=== PATIENT | female | born 1995 | race Caucasian/White ===

== ENCOUNTER 2017-05-30 08:31 | Inpatient (IN) | payer BC ==
[~2017-05-30] VITALS: Ht 162.6 cm; Wt 88.4 kg
[2017-05-30] MEDS ORDERED: KETOROLAC TROMETHAMINE 30 MG/ML VIAL IV STA (08:48)
[2017-05-30] MEDS ORDERED: SODIUM CHLORIDE 0.9% 1000ML 1,000 ML IV STA (08:48)
[2017-05-30] MEDS ORDERED: PRED20TA PO (09:10)
[2017-05-30] MEDS ORDERED: BCPILLS PO (09:10)
[2017-05-30] MEDS ORDERED: AMX875 PO (09:10)
[2017-05-30 09:15] LABS: BASO % 0.3 %; BASO ABS # 0.03 K/uL (0-0.2); HEMATOCRIT 43.2 % (37-47); HEMOGLOBIN 14.6 g/dL (12.0-16.0); IG# 0.02 K/uL (0.00-0.02); LYMPH % 19.8 %; LYMPH ABS # 1.88 K/uL (1.2-3.4); MEAN CELL VOLUME 91.7 fL (80-100); MEAN CORPUSCULAR HGB CONC 33.8 g/dl (32-36); MEAN PLATELET VOLUME 10.2 fL (7.4-10.4); MONO % 5.8 %; MONO ABS # 0.55 K/uL (0.11-0.59); NEUT % 73.9 %; PLATELET COUNT 232 K/uL (130-400); RED CELL DISTRIBUTION WIDTH CV 12.6 % (11.5-14.5); RED CELL DISTRIBUTION WIDTH SD 42.4 fL (36.4-46.3); WHITE BLOOD COUNT 9.48 K/uL (4.8-10.8)
--- NOTE | 2017-05-30 09:21 | EMERGENCY ROOM VISIT NOTE ---
History First contact with patient: 08:41 Chief Complaint: OTHER COMPLAINT Stated Complaint: THROAT IS TOUCHING, LIGHT HEADED, SWEATING, DIZZY History of Present Illness The patient is a 22 year old female who presents to the Emergency Room via private vehicle with complaints of "throat is touching, lightheaded, sweating, dizzy". The patient states that over the past weekend she developed a sore throat. She states that she was drinking. She states that she then felt ill, and states that her tonsils seem to be enlarged therefore she was seen at [facility] and prescribed amoxicillin and prednisone. She took 2 amoxicillin 3 prednisone tablets yesterday. She woke this morning and took more amoxicillin and prednisone. She states that she was going to go to her scheduled lab class however became hot, dizzy and sweaty and was concerned she may pass out therefore came here. She notes trouble breathing through her throat secondary to the amount of swelling at the tonsils. She rates her overall pain as a 6/ 10. She denies chance of . Review of Systems A complete 10-point Review of Systems was discussed with the patient, with pertinent positives and negatives listed in the History of Present Illness. All remaining Review of Systems questions can be considered negative unless otherwise specified. Past Medical/Surgical History Medical Problems: (1) Infectious mononucleosis No pertinent. Family History No pertinent. Social History Smoking Status: Never Smoker Patient is a [employer] student and lives locally. Current/Historical Medications Scheduled Amoxicillin (Amoxicillin), 875 MG PO BID Control Pills ( Control Pills), 1 TAB PO DAILY Prednisone (Prednisone), 60 MG PO DAILY Physical Exam Vital Signs Date Time Temp Pulse Resp B/P (MAP) Pulse Ox O2 Delivery O2 Flow Rate FiO2 05/30/17 10:27 90 16 137/99 98 Room Air 05/30/17 08:34 36.8 117 18 150/86 95 Room Air Physical Exam VITAL SIGNS - Vital signs and nursing notes were reviewed. Stable GENERAL - 22-year-old female appearing her stated age who is in no acute distress. She is conversing without difficulty. No trismus. No tripod sign. Communicates well with provider and answers questions appropriately. SKIN - Without rashes. No meningeal or petechial rash. HEAD - NC/AT. EYES - PERRL with EOMI bilaterally. Sclera anicteric. EARS - No deformities of external structures noted on gross examination bilaterally. External auditory canals without discharge or otorrhea. Tympanic membranes pearly monroy without retraction or bulging. No fluid or purulent material visualized behind the TM. Handle of malleus, umbo, cone of light, pars tensa/flaccid all easily visualized. NOSE - Midline and without cyanosis. No epistaxis or purulent drainage noted. MOUTH/OROPHARYNX - Without perioral cyanosis. There is 4+ tonsillar hypertrophy bilaterally with uvular displacement. The airway is mildly patent. No unilaterality. No soft palate involvement. No evidence of abscess. NECK - Neck with FROM. Supple to palpation. Anterior bilateral lymphadenopathy noted. No nuchal rigidity. LUNGS - Chest wall symmetric without accessory muscle use, intercostals retractions, or central cyanosis. Normal vesicular breath sounds CTA B/L. No wheezes, rales, or rhonchi appreciated. CARDIAC - RRR with S1/S2. No murmur, rubs, or gallops appreciated. EXTREMITIES - No clubbing or peripheral cyanosis. No pretibial edema present. +5 /5 strength noted in UE/LE bilaterally. NEUROLOGIC - Cranial nerves II through XII grossly intact. Sensory intact to light touch throughout. PSYCH - A&O, and cooperates fully with examiner. Pt is very pleasant and interacts well with examiner. Medical Decision & Procedures Laboratory Results 05/30/17 09:05 Red Blood Count 4.71, Mean Corpuscular Volume 91.7, Mean Corpuscular Hemoglobin 31.0, Mean Corpuscular Hemoglobin Concent 33.8, Mean Platelet Volume 10.2, Neutrophils (%) (Auto) 73.9, Lymphocytes (%) (Auto) 19.8, Monocytes (%) (Auto) 5.8, Eosinophils (%) (Auto) 0.0, Basophils (%) (Auto) 0.3, Neutrophils # (Auto) 7.00, Lymphocytes # (Auto) 1.88, Monocytes # (Auto) 0.55, Eosinophils # (Auto) 0.00, Basophils # (Auto) 0.03 05/30/17 09:05 Test 05/30/17 09:05 White Blood Count 9.48 K/uL (4.8-10.8) Red Blood Count 4.71 M/uL (4.2-5.4) Hemoglobin 14.6 g/dL (12.0-16.0) Hematocrit 43.2 % (37-47) Mean Corpuscular Volume 91.7 fL (80-100) Mean Corpuscular Hemoglobin 31.0 pg (25-34) Mean Corpuscular Hemoglobin Concent 33.8 g/dl (32-36) Platelet Count 232 K/uL (130-400) Mean Platelet Volume 10.2 fL (7.4-10.4) Neutrophils (%) (Auto) 73.9 % Lymphocytes (%) (Auto) 19.8 % Monocytes (%) (Auto) 5.8 % Eosinophils (%) (Auto) 0.0 % Basophils (%) (Auto) 0.3 % Neutrophils # (Auto) 7.00 K/uL (1.4-6.5) Lymphocytes # (Auto) 1.88 K/uL (1.2-3.4) Monocytes # (Auto) 0.55 K/uL (0.11-0.59) Eosinophils # (Auto) 0.00 K/uL (0-0.5) Basophils # (Auto) 0.03 K/uL (0-0.2) RDW Standard Deviation 42.4 fL (36.4-46.3) RDW Coefficient of Variation 12.6 % (11.5-14.5) Immature Granulocyte % (Auto) 0.2 % Immature Granulocyte # (Auto) 0.02 K/uL (0.00-0.02) Prothrombin Time 10.1 SECONDS (9.0-12.0) Prothromb Time International Ratio 1.0 (0.9-1.1) Anion Gap 9.0 mmol/L (3-11) Est Creatinine Clear Calc Drug Dose 104.5 ml/min Estimated GFR () 103.9 Estimated GFR (Non- 89.6 BUN/Creatinine Ratio 13.0 (10-20) Calcium Level 9.3 mg/dl (8.5-10.1) Total Bilirubin 0.3 mg/dl (0.2-1) Aspartate Amino Transf (AST/SGOT) 9 U/L (15-37) Alanine Aminotransferase (ALT/SGPT) 26 U/L (12-78) Alkaline Phosphatase 70 U/L (45-117) Total Protein 8.3 gm/dl (6.4-8.2) Albumin 3.9 gm/dl (3.4-5.0) Globulin 4.4 gm/dl (2.5-4.0) Albumin/Globulin Ratio 0.9 (0.9-2) Monoscreen POS (NEG) Medications Administered Medications (Trade) Dose Ordered Sig/Vanessa Route Start Time Stop Time Status Last Admin Dose Admin Sodium Chloride 1,000 ml @ 999 mls/hr Q1H1M STAT IV 05/30/17 08:48 05/30/17 09:48 DC 05/30/17 09:11 999 MLS/HR Ketorolac Tromethamine (Toradol Inj) 30 mg NOW STAT IV 05/30/17 08:48 05/30/17 08:50 DC 05/30/17 09:13 30 MG Clindamycin Phosphate (Cleocin 600mg/ 54ml D5W) 600 mg ONE STAT IV 05/30/17 10:13 05/30/17 10:14 DC 05/30/17 10:54 600 MG Dexamethasone Sodium Phosphate 10 mg/Syringe 2.5 ml @ 1 mls/min NOW STAT IV 05/30/17 10:13 05/30/17 10:15 DC 05/30/17 10:55 1 MLS/MIN Sodium Chloride 1,000 ml @ 50 mls/hr Q20H IV 05/30/17 11:04 06/29/17 11:03 05/30/17 14:56 50 MLS/HR Medical Decision Patient was seen and evaluated as above. She presents to us today with difficulty breathing and near syncopal event with enlarged tonsils. Review was performed of nursing notes and vital signs. After obtaining a thorough history and physical examination the above work up was performed. CBC reveals no concerning leukocytosis or anemia. Coagulation panel normal. Patient's metabolic panel reveals no evidence of kidney or liver failure. LFTs are unremarkable. She is mono positive. Patient notes that she had a negative strep test at [email or web address] yesterday. She has been taking amoxicillin and prednisone without relief. She was given Decadron and Toradol here. She was also given fluids and clindamycin. The clindamycin was ordered in case there is an underlying bacterial infection. She was educated upon risk of C. difficile. I do believe that inpatient management is warranted for the severity of the size of the tonsils. The patient did have difficulty breathing earlier today with a near syncopal event shortness of breath do find that managing her here in the inpatient setting with steroids until the tonsillar hypertrophy improves is warranted. Patient was in agreement. Case was discussed with the attending physician, and subsequently the hospitalist. Please refer to for the documentation regarding her stay. In the evaluation and treatment of this patient the following differential diagnoses were entertained: Tonsillitis, mononucleosis, strep pharyngitis, airway compromise, among others. Impression Primary Impression: Infectious mononucleosis Additional Impression: Tonsillar hypertrophy Departure Information Dispostion Admitted as an inpatient Condition FAIR Referrals No Doctor, Assigned (PCP) Patient Instructions My [facility] Problem Qualifiers
[2017-05-30 09:35] LABS: ALBUMIN 3.9 gm/dl (3.4-5.0); CALCIUM 9.3 mg/dl (8.5-10.1); CREATININE 0.92 mg/dl (0.60-1.20)
[2017-05-30 09:38] LABS: TOTAL PROTEIN 8.3 gm/dl (6.4-8.2)
[2017-05-30] MEDS ORDERED: DEXAMETHASONE INJ 10 MG in SYRINGE 0 ML IV STA (10:13)
[2017-05-30] MEDS ORDERED: CLINDAMYCIN 600 MG/54 ML D5W IV STA (10:13)
[2017-05-30] MEDS ORDERED: ACETAMINOPHEN 325 MG TAB PO PRN (11:15)
--- NOTE | 2017-05-30 11:18 | History and Physical ---
History & Physical Date & Time of Service: May 30, 2017 at 11:08 Chief Complaint: Throat Is Touching, Light Headed, Sweating, Dizzy Primary Care Physician: No Doctor, Assigned History of Present Illness Source: patient 22 years old female with no significant past medical history. 4 days ago patient developed itchy throat and felt like she might be having sore throat. She did not pay much attention to it. Yesterday she had a slight fever and her throat swelling gets worse. She went to [facility] and was told that most likely she had a strep throat. She was given prednisone 60 mg and amoxicillin. Today patient started feeling shortness of breath when she woke up, she felt like her tonsils are touching her uvula. She had a class at the [employer] that she tried to attend. But she felt that she will pass out. So she came to the hospital for further evaluation. In the hospital she was found to have a normal white blood cell count and extremely enlarged tonsils suspicious for infectious mononucleosis. Her infectious mononucleosis test was positive. Giving her history of presyncope and shortness of breath and the extreme narrowing of pharyngeal airway she will be admitted under observation until her airway opens up Past Medical/Surgical History Medical Problems: (1) Infectious mononucleosis Social History Smoking Status: Never Smoker Allergies Coded Allergies: No Known Allergies (Unverified , 05/30/17) Home Medications Scheduled Amoxicillin (Amoxicillin), 875 MG PO BID Control Pills ( Control Pills), 1 TAB PO DAILY Prednisone (Prednisone), 60 MG PO DAILY Review of Systems Review of system Constitutional: Yesterday 1 episode of fever / no chills / no sweats / no weakness / no fatigue Eyes: no blurring of vision / no eye pain / no discharge / no redness ENT: no hearing loss / no epistaxis /has shortness of breath with swelling in her throat, patient feels that her tonsils are touching her uvula Respiratory: no cough / no wheezing / no SOB / no hemoptysis Cardiovascular: no Chest pain / no lower extremity edema / no palpitation Abdomen: no pain / no nausea / no vomiting / no constipation Musculoskeletal: no joint pain / no muscle pain / no joint swelling Genitourinary: no dysuria / no incontinence / no urinary retention Neurologic: no focal weakness / no numbness/tingling / no ataxia Psychiatric: no depression symptoms / no anxiety / no insomnia Endocrine: no excessive thirst / no excessive urination Hematologic: no abnormal bleeding / no bruising / no LN swelling Skin: No rash / no pallor Physical Exam Vital Signs Date Time Temp Pulse Resp B/P (MAP) Pulse Ox O2 Delivery O2 Flow Rate FiO2 05/30/17 10:27 90 16 137/99 98 Room Air 05/30/17 08:34 36.8 117 18 150/86 95 Room Air Physical examination General patient appears to be comfortable, not in acute distress HEENT: Atraumatic , normocephalic /no jaundice /no pallor /anicteric /no dry mucous membrane /normal external ear inspection patient pharynx appears to be Normal except for severely enlarged tonsils, her tonsils almost touching each other with a very small slit in between preserved for breathing. Neck: Supple /no swelling /central trach Heart: S1/S2 normal/regular rate and rhythm/no gallop /no rub /no murmur Lungs: Clear to auscultation bilaterally/normal chest with expansion/no rhonchi/ no rales/no wheezing/no use of accessory muscles of respiration Abdomen: Soft/nontender/no guarding/no rebound/no organomegaly/no pulsatile mass due to body habitus I was not able to appreciate, enlarged spleen or liver , I did not wanted to do deep palpation to avoid rupturing any of her internal organs Musculoskeletal: No swelling/no edema/no tenderness/normal range of motion Neuro exam: Awake alert oriented 3/cranial nerves II through XII appear to be intact/sensation intact/moves all extremities/no abnormal movements Psychiatric evaluation: No depressed mood/normal affect Skin: No rash on exposed skin area/no erythema Extremity: Normal pulse/no pitting edema/no clubbing or cyanosis Endocrine/lymphatic: No obvious lymphadenopathy /no lymphedema Diagnostics Laboratory Results Results Past 24 Hours Test 05/30/17 09:05 Range/Units White Blood Count 9.48 4.8-10.8 K/uL Red Blood Count 4.71 4.2-5.4 M/uL Hemoglobin 14.6 12.0-16.0 g/dL Hematocrit 43.2 37-47 % Mean Corpuscular Volume 91.7 80-100 fL Mean Corpuscular Hemoglobin 31.0 25-34 pg Mean Corpuscular Hemoglobin Concent 33.8 32-36 g/dl Platelet Count 232 130-400 K/uL Mean Platelet Volume 10.2 7.4-10.4 fL Neutrophils (%) (Auto) 73.9 % Lymphocytes (%) (Auto) 19.8 % Monocytes (%) (Auto) 5.8 % Eosinophils (%) (Auto) 0.0 % Basophils (%) (Auto) 0.3 % Neutrophils # (Auto) 7.00 1.4-6.5 K/uL Lymphocytes # (Auto) 1.88 1.2-3.4 K/uL Monocytes # (Auto) 0.55 0.11-0.59 K/uL Eosinophils # (Auto) 0.00 0-0.5 K/uL Basophils # (Auto) 0.03 0-0.2 K/uL RDW Standard Deviation 42.4 36.4-46.3 fL RDW Coefficient of Variation 12.6 11.5-14.5 % Immature Granulocyte % (Auto) 0.2 % Immature Granulocyte # (Auto) 0.02 0.00-0.02 K/uL Sodium Level 137 136-145 mmol/L Potassium Level 4.0 3.5-5.1 mmol/L Chloride Level 104 98-107 mmol/L Carbon Dioxide Level 24 21-32 mmol/L Anion Gap 9.0 3-11 mmol/L Blood Urea Nitrogen 12 7-18 mg/dl Creatinine 0.92 0.60-1.20 mg/dl Est Creatinine Clear Calc Drug Dose 104.5 ml/min Estimated GFR () 103.9 Estimated GFR (Non- 89.6 BUN/Creatinine Ratio 13.0 10-20 Random Glucose 122 70-99 mg/dl Calcium Level 9.3 8.5-10.1 mg/dl Total Bilirubin 0.3 0.2-1 mg/dl Aspartate Amino Transf (AST/SGOT) 9 15-37 U/L Alanine Aminotransferase (ALT/SGPT) 26 12-78 U/L Alkaline Phosphatase 70 45-117 U/L Total Protein 8.3 6.4-8.2 gm/dl Albumin 3.9 3.4-5.0 gm/dl Globulin 4.4 2.5-4.0 gm/dl Albumin/Globulin Ratio 0.9 0.9-2 Monoscreen POS NEG Impression Assessment and Plan 22 years old female with acute infectious mononucleosis presented to the hospital with shortness of breath, mild airway and presyncope. Assessment infectious mononucleosis Shortness of breath secondary to narrow airway Presyncope secondary to above Plan Admit patient for observation Keep patient in a telemetry unit, if she gets worse we will have a low tolerance to transfer her to ICU Keep 24 hours monitor for O2 sat with an alarm in the room Patient received 1 dose of Decadron in ED, will continue Decadron today then switch her tomorrow to prednisone 60 mg daily, extremely large dose steroids has not been sufficiently started with infectious mononucleosis so will stick with the 60 mg prednisone from tomorrow until the swelling subsides. Continue clindamycin for another day until throat culture results come back Lovenox for DVT prophylaxis Pepcid IV for GI prophylaxis Gentle IV fluid hydration There is no appreciated wheezing so we will hold off any bronchodilators Currently her O2 sat is normal and able to breathe comfortably, will hold on racemic epinephrine treatment is currently standard but will order an ENT consult for tomorrow as patient should not be discharged without the ENT clearance Resuscitation Status VTE Prophylaxis Will order VTE Prophylaxis: Yes
[2017-05-30] MEDS: SODIUM CHLORIDE 0.9% 1000ML 1,000 ML IV SCH ×2 (12:06→14:56)
[2017-05-30] MEDS ORDERED: FAMOTIDINE IV INJ 20 MG in DEXTROSE 5% 100ML 100 ML IV STA (13:58)
[2017-05-30 14:50] VITALS: BP 127/70; PULSE 89; TEMP 36.5; O2SAT 98; Ht 162.6 cm; Wt 88.4 kg
[2017-05-30] MEDS ORDERED: ENOXAPARIN 40 MG/0.4 ML SYR SC SCH (16:00)
[2017-05-30] MEDS ORDERED: DEXAMETHASONE INJ 6 MG in SYRINGE 0 ML IV SCH (17:00)
[2017-05-30] MEDS: FAMOTIDINE IV INJ 20 MG in SYRINGE 3 ML IV SCH (17:23)
[2017-05-30] MEDS: DEXAMETHASONE INJ 10 MG in SYRINGE 0 ML IV SCH (19:08)
[2017-05-30 19:31] VITALS: BP 109/71; PULSE 88; TEMP 36.8; O2SAT 96
[2017-05-30] MEDS: CLINDAMYCIN IV 600 MG in DEXTROSE 5% 50ML 50 ML IV SCH (19:57)
[2017-05-30 20:00] VITALS: O2SAT 96
[2017-05-30] MEDS ORDERED: CLINDAMYCIN 600 MG/54 ML D5W IV SCH (20:00)
[2017-05-30 23:59] VITALS: BP 132/78; PULSE 65; TEMP 36.9; O2SAT 97
[2017-05-31] MEDS: CLINDAMYCIN IV 600 MG in DEXTROSE 5% 50ML 50 ML IV SCH (03:13)
[2017-05-31] MEDS: DEXAMETHASONE INJ 10 MG in SYRINGE 0 ML IV SCH ×2 (03:13→11:00)
[2017-05-31 04:00] VITALS: BP 135/69; PULSE 65; TEMP 36.9; O2SAT 97
[2017-05-31 06:07] LABS: BASO % 0.3 %; BASO ABS # 0.03 K/uL (0-0.2); HEMATOCRIT 41.7 % (37-47); HEMOGLOBIN 14.3 g/dL (12.0-16.0); IG# 0.03 K/uL (0.00-0.02); LYMPH % 17.8 %; LYMPH ABS # 1.99 K/uL (1.2-3.4); MEAN CELL VOLUME 92.9 fL (80-100); MEAN CORPUSCULAR HEMOGLOBIN 31.8 pg (25-34); MEAN CORPUSCULAR HGB CONC 34.3 g/dl (32-36); MEAN PLATELET VOLUME 10.5 fL (7.4-10.4); MONO % 4.3 %; MONO ABS # 0.48 K/uL (0.11-0.59); NEUT % 77.3 %; NEUT ABS # 8.63 K/uL (1.4-6.5); PLATELET COUNT 245 K/uL (130-400); RED CELL DISTRIBUTION WIDTH CV 12.8 % (11.5-14.5); RED CELL DISTRIBUTION WIDTH SD 43.7 fL (36.4-46.3); WHITE BLOOD COUNT 11.16 K/uL (4.8-10.8)
--- NOTE | 2017-05-31 06:28 | ENT CONSULTATION ---
DATE OF CONSULTATION: 05/31/2017 I have been asked by Dr. Linares to evaluate this patient with mono tonsillitis to rule out airway compromise. HISTORY OF PRESENT ILLNESS: The patient is a 22-year-old female, [employer] student, originally from the [place] area, who was admitted yesterday with infectious mononucleosis and tonsillitis with tonsillar enlargement leading to subjective complaints of shortness of breath. She has been placed on IV antibiotics and IV steroids and states that she feels "60%" better. She states that she is unsure as to why she was even admitted yesterday as she is feeling fairly well. She currently denies any shortness of breath. She only has a mild sore throat. She denies any referred otalgia, odynophagia, dysphagia, drooling, change in her voice or shortness of breath. The patient has a history of snoring and possible obstructive sleep apnea prior to her developing infectious mononucleosis. She has no history of recurrent streptococcal tonsillitis. She is begging me to take out her tonsils but is not meeting criteria for tonsillectomy at this time. She is somewhat belligerent this morning and is opposed to having a sleep study to determine whether or not she has obstructive sleep apnea. I would not recommend the sleep study until she has recovered from her mononucleosis 4-6 weeks from now. ALLERGIES: No known drug allergies. MEDICATIONS: Clindamycin, Decadron, prednisone, Lovenox, famotidine, Tylenol p.r.n. PAST MEDICAL HISTORY: 1. Mild obesity. 2. Snoring and possible obstructive sleep apnea. PAST SURGICAL HISTORY: None. FAMILY HISTORY: Noncontributory. No bleeding disorders or malignant hyperthermia. SOCIAL HISTORY: The patient is a [employer] student who is originally from [place]. She denies tobacco use. She drinks alcohol occasionally. REVIEW OF SYSTEMS: The patient has a mild sore throat, but no odynophagia, dysphagia, drooling or shortness of breath. She states that she feels "60%" better. She has mild fatigue. She denies any hearing loss, tinnitus, dizziness or vertigo. She has mild nasal congestion. She denies any sinus pain or pressure. She denies any abdominal pain. She denies any chest pain. PHYSICAL EXAMINATION: GENERAL: This is a young adult white female in no acute distress, with a normal voice. VITAL SIGNS: She is afebrile and her vital signs are stable. She is satting 97% on room air. HEENT: Oral cavity and oropharyngeal examination reveals 3+ tonsils which are mildly erythematous and not touching. There is no soft palate or uvula edema. There is no trismus. NECK: Reveals mild anterior and posterior lymphadenopathy. The patient has no stertor or stridor. NEUROLOGIC: She is awake and alert and oriented x3. Cranial nerves II-XII are grossly intact. IMPRESSION AND RECOMMENDATIONS: A 22-year-old female with infectious mononucleosis and tonsillitis. I believe that she can be discharged this morning from the hospital on oral antibiotics and steroids. I would recommend oral clindamycin 300 mg 4 times daily for at least 10 days. I would recommend a steroid taper such as prednisone 30 mg twice daily for 2 days, followed by 20 mg twice daily for 2 days, followed by 10 mg twice daily for 2 days, followed by 10 mg daily for 2 days. Once again, the patient does not meet criteria for tonsillectomy at this time. If she is more mature about the recommendations, she should have a sleep study to determine whether or not she has obstructive sleep apnea approximately 6 weeks after she has recovered from mono. I will sign off on this consultation, but if you need any further assistance, please do not hesitate to contact me.
[2017-05-31 06:43] LABS: ALBUMIN 3.8 gm/dl (3.4-5.0); CALCIUM 9.4 mg/dl (8.5-10.1); CREATININE 0.67 mg/dl (0.60-1.20); POTASSIUM 4.2 mmol/L (3.5-5.1)
[2017-05-31 06:46] LABS: TOTAL PROTEIN 7.7 gm/dl (6.4-8.2)
[2017-05-31 07:18] VITALS: BP 117/57; PULSE 63; TEMP 37.1; O2SAT 97
[2017-05-31] MEDS: FAMOTIDINE IV INJ 20 MG in SYRINGE 3 ML IV SCH (08:02)
[2017-05-31] MEDS ORDERED: PRED10TA PO (10:16)
[2017-05-31] MEDS ORDERED: CLIN300C2 PO (10:16)
--- NOTE | 2017-05-31 10:26 | Discharge Instructions ---
Discharge Instructions Date of Service May 31, 2017. Admission Reason for Admission: Infectious Mononucleosis Discharge Discharge Diagnosis / Problem: mono, tonsilitis Discharge Goals Goal(s): Diagnostic testing, Therapeutic intervention Activity Recommendations Activity Limitations: resume your previous activity . Instructions / Follow-Up Instructions / Follow-Up a) mono -mono is a quite common infectious illness, usually causing fatigue, swollen lymph notes and swollen tonsils (which essentially are lymph nodes in the back of the throat) - about 95% of people have had mono by the time they're 18, so you're just barely an outlier, but it's certainly not uncommon to have it at 22. typically it takes about a month to totally get better (the tonsils/nodes type stuff usually gets better over a few weeks - quicker with the steroids) but fatigue and just generally not feeling like yourself can take a good deal longer to totally go away -one thing we didn't talk about with mono is that it can make your spleen temporarily big - the spleen is essentially a giant lymph node, so when everything else gets big, it can too. the main thing there is that while small , there's always a chance of impact causing the spleen to rupture. again, this is really unlikely to happen, but the best way to play it safe is just to take it easy the next month or so, and if you play any contact sports (even pecan picker games) - hold off for about 4 weeks -we'll treat to reduce the tonsillar swelling with prednisone - 40mg for 2 days , 30mg for 2 days, and so on -- usually the main side effects for short courses of treatment are just being hungry and feeling kind of hyper - so it's best taken in the morning (usually after breakfast) b) tonsillitis -as frequently happens with mono, there's evidence that you have bacterial overgrowth in your throat contributing to the swollen tonsils. (it's usually that the viral infection sets things up for the bacterial infection to overgrow) -we'll need to finish out a course of treatment with clindamycin (it does the best job of mouth/throat bacterial coverage) for the next 10 days. unfortunately, it's a four time a day antibiotic - so set your phone alarm to remind you - especially for the lunch/dinner time dosing. it's also not infrequent to cause diarrhea, and while probiotics aren't always "gangbusters" in preventing it, they can help - so it would be reasonable when you're at the pharmacy to grab a probiotic to take in order to try to cut down on the diarrhea as we discussed, don't entirely close the door on a career in medicine based on your sister's experiences. come shadow, we can talk about different career paths, work-life balance, burnout, etc. we have a number of docs who are willing to have undergrads shadow - but i can get the ball rolling with you. once you're better from this email me - [email or web address] Current Hospital Diet Patient's current hospital diet: Full Liquid Diet Discharge Diet Recommended Diet: Regular Diet (obviously take it easy with things that are thick/chewy/solid (like breads, crackers, pretzels, meats....it's not a "strict avoidance" as much as a "those things will probably feel like they're getting stuck more than other foods") Pending Studies Studies pending at discharge: no Medical Emergencies . Who to Call and When: Medical Emergencies: If at any time you feel your situation is an emergency, please call 911 immediately. . Non-Emergent Contact Non-Emergency issues call your: Primary Care Provider (follow up with [facility] mid/late next week for a recheck especially on how the tonsillitis part of this is getting better) . . "Provider Documentation" section prepared by Herman Wright. .
[2017-05-31 10:38] VITALS: BP 117/57; PULSE 63; TEMP 37.1; O2SAT 97
--- NOTE | 2017-05-31 18:32 | Discharge Summary ---
Discharge Summary Date of Service May 31, 2017. Discharge Summary Admission Date: May 30, 2017 at 11:08 Discharge Date: May 31, 2017 Discharge Disposition: Home Principal Diagnosis: mononucleosis, tonsilitis, early airway compromise Procedures: Last Resulted CBC 05/31/17 05:24 Red Blood Count 4.49, Mean Corpuscular Volume 92.9, Mean Corpuscular Hemoglobin 31.8, Mean Corpuscular Hemoglobin Concent 34.3, Mean Platelet Volume 10.5, Neutrophils (%) (Auto) 77.3, Lymphocytes (%) (Auto) 17.8, Monocytes (%) (Auto) 4.3, Eosinophils (%) (Auto) 0.0, Basophils (%) (Auto) 0.3, Neutrophils # (Auto) 8.63, Lymphocytes # (Auto) 1.99, Monocytes # (Auto) 0.48, Eosinophils # (Auto) 0.00, Basophils # (Auto) 0.03 Last Resulted BMP 05/31/17 05:24 Item Value Date Time Monoscreen POS H 05/30/17 0905 Consultations: ENT: IMPRESSION AND RECOMMENDATIONS: A 22-year-old female with infectious mononucleosis and tonsillitis. I believe that she can be discharged this morning from the hospital on oral antibiotics and steroids. I would recommend oral clindamycin 300 mg 4 times daily for at least 10 days. I would recommend a steroid taper such as prednisone 30 mg twice daily for 2 days, followed by 20 mg twice daily for 2 days, followed by 10 mg twice daily for 2 days, followed by 10 mg daily for 2 days. Once again, the patient does not meet criteria for tonsillectomy at this time. If she is more mature about the recommendations, she should have a sleep study to determine whether or not she has obstructive sleep apnea approximately 6 weeks after she has recovered from mono. I will sign off on this consultation, but if you need any further assistance, please do not hesitate to contact me. Medication Reconciliation New Medications: Clindamycin Hcl (Cleocin) 300 Mg Cap 300 MG PO QID for 10 Days, #40 CAP Prednisone (Prednisone) 10 Mg Tab 10 MG PO UD, #20 TAB 4 po daily x 2 days then 3 po daily x 2 days then 2 po daily x 2 days then 1 po daily x 2 days then stop Continued Medications: Control Pills ( Control Pills) Tab 1 TAB PO DAILY, TAB Discontinued Medications: Amoxicillin (Amoxicillin) 875 Mg Tab 875 MG PO BID Prednisone (Prednisone) 20 Mg Tab 60 MG PO DAILY, TAB Discharge Exam Physical Exam: General Appearance: no apparent distress Eyes: EOMI ENT: + pertinent finding (tonsils ~3+ significantly down from pictures she shows me of last night; minimal exudate now) Respiratory/Chest: no respiratory distress, no accessory muscle use (no stridor) Extremities: normal inspection Neurologic/Psychiatric: sizer machine II-XII nml as tested, alert, normal mood/affect Hospital Course mononucleosis, tonsilitis, early airway compromise -admitted through the ER for all of above - was on prednisone and amoxicillin as outpt but was worsening in spite of treatment -- started on IV steroids, IV clinda, fortunately quickly improved. stable for discharge to home today. extensive discussions in regards to mono, tonsilitis, etc - answered all questions to the best of my ability and to her understanding and satisfaction. finish taper of prednisone and 10 days of clinda. f/u PCP for ongoing assessment and check on improvements, as well as to determine true utility of sleep study recommended by ENT. Total Time Spent: Greater than 30 minutes This includes examination of the patient, discharge planning, medication reconciliation, and communication with other providers. Discharge Instructions Please refer to the electronic Patient Visit Report (Discharge Instructions) for additional information. Additional Copies To [facility]
== END 2017-05-31 11:10 | disposition home or self-care (01) | DRG 866 ==
LOC: C.EDB 08:34 → C.2E 11:08 → ENRESERV 13:09
PROVIDERS: ADMIT Internal Medicine; ATTEND Family Medicine
DX: B27.99 Infectious mononucleosis, unspecified with other complication (principal); J35.01 Chronic tonsillitis; E66.9 Obesity, unspecified; Z68.33 Body mass index [BMI] 33.0-33.9, adult